=== PATIENT | female | born 1970 | race Caucasian/White ===

== ENCOUNTER 2018-12-11 06:08 | Day surgery (SDC) | payer BC ==
[~2018-12-11] VITALS: Ht 154.9 cm; Wt 68.5 kg
[~2018-12-11 06:08] MED LIST: BIOTIN MAXI10000 MCG PO; MAGNESIUM GLYCINATE PO; VITAMIN K2100 MCG PO; [UNRECOGNIZED DRUG - OTHER] PO
[2018-12-11 07:28] VITALS: BP 135/77
== END 2018-12-11 07:40 | disposition home or self-care (01) | DRG 951 ==
LOC: ENDO 06:08
PROVIDERS: ATTEND Surgery
PROC: 0DJD8ZZ Inspection of Lower Intestinal Tract, Via Natural or Artificial Opening Endoscopic (ICD-10-PCS; principal; 2018-12-11)
DX: Z12.11 Encounter for screening for malignant neoplasm of colon (principal)

== ENCOUNTER 2020-08-17 12:21 | Emergency (ER) | payer BC ==
[~2020-08-17] VITALS: Ht 154.9 cm; Wt 68.0 kg
[2020-08-17 12:41] LABS: HEMATOCRIT 39.3 % (37.0-47.0); HEMOGLOBIN 12.9 g/dl (12.0-16.0); IMMATURE GRANULOCYTES 0.2 % (0.0-5.0); MEAN CELL VOLUME 98.5 fL CALC (80.0-100.0); MEAN CORPUSCULAR HGB 32.3 pG CALC (26.0-32.0); MEAN CORPUSCULAR HGB CONC 32.8 g/dL CAL (32.0-36.0); NEUT# 3.54 thou/uL (2.00-7.15); RED BLOOD COUNT 3.99 mill/uL (4.20-5.60)
[2020-08-17 12:56] LABS: ALBUMIN 4.5 g/dL (3.2-5.0); ALKALINE PHOSPHATASE 70 u/l (38-126); ANION GAP 14 (6-22 (CALC)); BILIRUBIN, TOTAL 0.7 mg/dL (0.0-1.4); BUN 7 mg/dL (7-17); BUN/CREATININE RATIO 14 (12-20 (CALC)); CARBON DIOXIDE 21 mmol/l (22-30); CHLORIDE 104 mmol/l (95-108); CREATININE 0.5 mg/dL (0.5-1.0); GFR > 60 ML/MIN (>=60 (CALC)); GFR FOR AFR.AMER. > 60 ML/MIN (>=60 (CALC)); LIPASE 64 u/l (23-300); SGOT/AST 35 u/l (14-36); SODIUM 135 mmol/l (137-146); TOTAL PROTEIN 7.8 g/dL (6.3-8.2)
[2020-08-17 12:58] LABS: ACT PARTIAL THROMBO TIME 25.2 SECONDS (20.0-32.5); INTERNATIONAL NORMALIZED RATIO 0.9 RATIO (0.7-1.3); PROTHROMBIN TIME 9.6 SECONDS (9.0-12.5)
[2020-08-17] MEDS ORDERED: XANAX0.5 MG PO (13:46)
[2020-08-17 14:20] VITALS: BP 155/62
== END 2020-08-17 14:20 | disposition short-term general hospital (02) | DRG 282 ==
LOC: ED 12:21
DX: I21.4 Non-ST elevation (NSTEMI) myocardial infarction (principal); I10 Essential (primary) hypertension
CPT/HCPCS: J1644

== ENCOUNTER 2024-02-11 07:28 | Day surgery (SDC) | payer OTHER ==
[~2024-02-11] VITALS: Ht 154.9 cm; Wt 70.3 kg
[~2024-02-11 07:28] MED LIST changes: +BAYER ASPIRIN E81 MG PO; +ISOSORB MONO30 MG PO; +LAGEVRIO PO; +LIPITOR80 M1 PO; +LOPRESSOR25 M1 PO; +NITROSTAT0.4 MG SL; +PAXLOVID PO; +PLAVIX75 MG PO; +XANAX0.5 MG PO
[2024-02-11] MEDS ORDERED: LACTATED RINGER'S 1,000 ML IV ONE (07:39)
[2024-02-11] MEDS ORDERED: FAMOTIDINE 10MG/ML 2ML SDV IV ONE (08:12)
[2024-02-11 09:05] VITALS: BP 113/59
[2024-02-11] MEDS ORDERED: GLYCOPYRROLATE 0.2 MG/ML IV ONE (14:20)
[2024-02-11] MEDS ORDERED: LIDOCAINE HCL 2% 2ML SDV IV ONE (14:20)
[2024-02-11] MEDS ORDERED: PROPOFOL 200 MG/20 ML VIAL IV ONE (14:20)
== END 2024-02-11 09:40 | disposition home or self-care (01) | DRG 951 ==
LOC: ENDO 07:28 → ORM 09:55
PROVIDERS: ATTEND Internal Medicine Gastroenterology
PROC: 0DJD8ZZ Inspection of Lower Intestinal Tract, Via Natural or Artificial Opening Endoscopic (ICD-10-PCS; principal; 2024-02-11)
PROC: 0D738ZZ Dilation of Lower Esophagus, Via Natural or Artificial Opening Endoscopic (ICD-10-PCS; 2024-02-11)
PROC: 0DB38ZX Excision of Lower Esophagus, Via Natural or Artificial Opening Endoscopic, Diagnostic (ICD-10-PCS; 2024-02-11)
PROC: 0DB78ZX Excision of Stomach, Pylorus, Via Natural or Artificial Opening Endoscopic, Diagnostic (ICD-10-PCS; 2024-02-11)
PROC: 0DB28ZX Excision of Middle Esophagus, Via Natural or Artificial Opening Endoscopic, Diagnostic (ICD-10-PCS; 2024-02-11)
DX: Z12.11 Encounter for screening for malignant neoplasm of colon (principal); K57.30 Diverticulosis of large intestine without perforation or abscess without bleeding; K22.2 Esophageal obstruction; K29.50 Unspecified chronic gastritis without bleeding; K31.7 Polyp of stomach and duodenum; F41.9 Anxiety disorder, unspecified; Z86.010 Personal history of colon polyps; Z83.719 Family history of colon polyps, unspecified; Z87.19 Personal history of other diseases of the digestive system; Z87.891 Personal history of nicotine dependence